=== PATIENT | male | born 1955 | race African-American/Black ===

== ENCOUNTER 2024-07-24 07:32 | Day surgery (SDC) | payer BC, OTHER ==
[2024-07-24] MEDS: Lactated Ringers 1,000 ML IV SCH (07:56)
[2024-07-24] MEDS ORDERED: propofoL 500 MG/50 ML 50 ML ONE (08:38)
[2024-07-24] MEDS ORDERED: Lactated Ringers 1,000 ML IV SCH (10:00)
== END 2024-07-24 10:25 | disposition home or self-care (01) ==
LOC: MW.SDS 07:32
PROVIDERS: ATTEND Surgery
DX: Z12.11 Encounter for screening for malignant neoplasm of colon (principal); D21.4 Benign neoplasm of connective and other soft tissue of abdomen; D12.5 Benign neoplasm of sigmoid colon; E66.01 Morbid (severe) obesity due to excess calories; I10 Essential (primary) hypertension; Z68.41 Body mass index [BMI] 40.0-44.9, adult; Z79.899 Other long term (current) drug therapy
CPT/HCPCS: 45380; J2704; J7120; 00811